=== PATIENT | female | born 1955 | race Caucasian/White ===

== ENCOUNTER 2025-07-26 17:58 | Emergency (ER) | payer OTHER ==
[~2025-07-26] VITALS: Ht 170.2 cm; Wt 93.4 kg
[2025-07-26] MEDS ORDERED: ABILIFY30 MG PO (22:32)
[2025-07-26 23:04] LABS: BASOPHILS 0.3 % (0.1-1.2); EOSINOPHILS 5.6 % (0.7-5.8); LYMPHOCYTES 11.9 % (19.3-51.7); MCH 28.5 PG (25.6-32.2); MCHC 31.0 g/dL (32.2-35.5); MCV 92.1 fL (79.4-94.8); MONOCYTES 6.6 % (4.7-12.5); NEUTROPHILS 75.1 % (34.0-71.1); RBC 3.65 M/uL (3.93-5.22)
[2025-07-26 23:20] LABS: ALT (SGPT) 12.0 U/L (14-59); AST (SGOT) 12.0 U/L (15-37); GLOMERULAR FILTRATION RATE,EST 77.0 mL/min (>60); PROTEIN, TOTAL 6.6 g/dL (6.4-8.2); UREA NITROGEN 14.0 mg/dL (7-18)
[2025-07-26] MEDS ORDERED: SODIUM CHLORIDE 0.9% 1,000 ML IV ONE (23:45)
[2025-07-26] MEDS ORDERED: ZOLPIDEM TARTRATE 5 MG TAB PO ONE (23:45)
[2025-07-27] MEDS ORDERED: ABILIFY30 MG PO (00:23)
[2025-07-27] MEDS ORDERED: DOXYCYCLINE HYCLATE 100 MG HOME.PACK PO ONE (00:30)
[2025-07-27 01:51] LABS: LACTIC ACID, BLOOD 1.8 mmol/L (0.4-2.0)
[2025-07-27 02:21] VITALS: BP 104/50
== END 2025-07-27 03:02 | disposition home or self-care (01) ==
LOC: ED 17:58
PROVIDERS: Family Medicine
DX: L03.115 Cellulitis of right lower limb (principal); L03.116 Cellulitis of left lower limb; L12.0 Bullous pemphigoid; G20.A1 Parkinson's disease without dyskinesia, without mention of fluctuations; J44.9 Chronic obstructive pulmonary disease, unspecified; I25.2 Old myocardial infarction; Z86.73 Personal history of transient ischemic attack (TIA), and cerebral infarction without residual deficits; Z88.0 Allergy status to penicillin; Z88.5 Allergy status to narcotic agent
CPT/HCPCS: 36415; 80053; 83605; 85025; 96365; 99283-25; A9270; J0696; J7030